=== PATIENT | male | born 1990 | race African-American/Black ===

== ENCOUNTER 2023-03-22 15:19 | Emergency (ER) | payer OTHER ==
[~2023-03-22] VITALS: Ht 182.9 cm; Wt 85.7 kg
[2023-03-22] MEDS ORDERED: TYL2T PO (16:26)
[2023-03-22 17:00] VITALS: BP 125/71; TEMP 98.3; O2SAT 100
== END 2023-03-22 17:00 | disposition home or self-care (01) ==
LOC: ER 15:19
DX: S80.12XA Contusion of left lower leg, initial encounter (principal); Z60.2 Problems related to living alone; W01.198A Fall on same level from slipping, tripping and stumbling with subsequent striking against other object, initial encounter; Y93.89 Activity, other specified; Y92.89 Other specified places as the place of occurrence of the external cause; Y99.8 Other external cause status
CPT/HCPCS: 73590-TC